=== PATIENT | male | born 1995 | race Caucasian/White ===

== ENCOUNTER 2017-09-16 22:21 | Emergency (ER) | payer BC ==
--- NOTE | 2017-09-16 22:27 | PDOC ---
History of Present Illness - General Chief Complaint: Nausea Stated Complaint: NOT FEELING WELL Time Seen by Provider: 09/16/17 22:27 History Source: Patient Exam Limitations: No Limitations - History of Present Illness Initial Comments: 09/16/17 22:30 This is a 22-year-old male who comes in complaining of not feeling well. Patient describes his symptoms are not feeling well as palpitations, some feeling of dizziness and some nausea. Patient said that he has been under a lot of stress the last few days. Patient denies history of similar symptoms in the past. Patient says he is otherwise healthy denies any vomiting, diarrhea, fever , chills. Patient denies any pain. PAST MEDICAL HISTORY: no significant history PAST SURGICAL HISTORY: no significant history FAMILY HISTORY: no pertinant history SOCIAL HISTORY: Pt lives with family and is employed. MEDICATIONS: reviewed ALLERGIES: As per nursing notes Review of Systems General: No fevers or chills, no weakness, no weight loss HEENT: No change in vision. No sore throat,. No ear pain CardioVascular: Palpitations, no chest pain, no shortness of breath Respiratory:No cough, or wheezing. Gastrointestinal: no nausea, vomitting, diarrhea or constipation, No rectal bleeding Genitourinary: No dysuria, hematuria, or frequency Musculoskeletal: No joint or muscle pain or swelling Neurologic: No headache, vertigo, dizziness, no syncope Psychiatric: nor depression Skin: No rashes or easy bruising Endocrine: no increased thirst or abnormal weight change Allergic: no skin or latex allergy All other systems reviewed and normal Exam: General: Well-nourished well-developed individual, no acute distress HEENT: Throat: Normal, tonsils normal, no erythema or exudate Neck: Supple, no meningeal signs, no lymphadenopathy Eyes::Pupils equal reactive and round, extraocular motion intact Chest: Nontender to palpation Cardiac: S1-S2 normal, regular rate and rhythm, no murmurs rubs or gallops Respiratory: Lungs clear to auscultation bilateral Abdomen: Soft, nondistended, normal bowel sounds, nontender to palpation diffusely Extremities: Warm, dry, no cyanosis, clubbing, or edema Skin: No rashes Neuro: Alert and oriented x3, nonfocal exam, grossly intact, normal gait Psych: Normal mood and affect Past History - Past Medical History Allergies/Adverse Reactions: Allergies Allergy/AdvReac Type Severity Reaction Status Date / Time No Known Drug Allergies Allergy Verified 09/22/16 09:58 SEAFOOD Allergy Uncoded 09/22/16 09:58 Home Medications: Ambulatory Orders NK [No Known Home Medication] 09/16/17 - Suicide/Smoking/Psychosocial Hx Smoking History: Current every day smoker Number of Cigarettes Smoked Daily: 10 'Breaking Loose' booklet given: 09/22/16 Hx Alcohol Use: Yes Drug/Substance Use Hx: No Substance Use Type: Alcohol *DC/Admit/Observation/Transfer Diagnosis at time of Disposition: Heart palpitations, Anxiety - Discharge Dispostion Disposition: HOME Condition at time of disposition: Stable Admit: No - Referrals - Patient Instructions Additional Instructions: Follow-up with a residential sales next week. Make sure you stay well hydrated. Return to the emergency department immediately with ANY new, persistent or worsening symptoms. Continue any medications as previously prescribed by your physician. You should follow up with your primary doctor as soon as possible regarding today's emergency department visit. . Please make sure your doctor reviews the results of your emergency evaluation. Thank you for coming to the Emergency Department today for your care. It was a pleasure to see you today. Please note that your evaluation is INCOMPLETE until you follow-up with your doctor. - Post Discharge Activity
[2017-09-16 22:28] VITALS: BP 126/87; PULSE 75; TEMP 98.7; BMI 29.0
[2017-09-16] MEDS ORDERED: ALPRAZolam 0.25 MG TABLET PO STA (22:45)
[2017-09-16] MEDS ORDERED: ALPRAZolam 0.25 MG TABLET ONE (22:48)
--- NOTE | 2017-09-20 08:10 | EKG ---
Test Reason : Blood Pressure : / mmHG Vent. Rate : 054 BPM Atrial Rate : 054 BPM P-R Int : 166 ms QRS Dur : 092 ms QT Int : 392 ms P-R-T Axes : 044 065 057 degrees QTc Int : 371 ms SINUS BRADYCARDIA WITH MARKED SINUS ARRHYTHMIA OTHERWISE NORMAL ECG NO PREVIOUS ECGS AVAILABLE Confirmed by ROXANA CLIFTON MD ([id number]) on 09/20/2017 8:10:12 AM Referred By: DR VANCE Confirmed By:ROXANA CLIFTON MD
== END 2017-09-16 23:42 | disposition home or self-care (01) ==
LOC: FER 22:21
DX: R00.2 Palpitations (principal); R41.9 Unspecified symptoms and signs involving cognitive functions and awareness; F17.210 Nicotine dependence, cigarettes, uncomplicated
CPT/HCPCS: 93005; 93010; 99282-25

== ENCOUNTER 2018-01-06 12:52 | Emergency (ER) | payer BC ==
[2018-01-06 13:05] VITALS: BP 117/64; PULSE 82; TEMP 99; BMI 30.5
[2018-01-06] MEDS ORDERED: KETOROLAC TROMETHAMINE 30 MG/1 ML VIAL IM ONE (13:23)
--- NOTE | 2018-01-06 13:23 | PDOC ---
History of Present Illness - General Chief Complaint: Sore Throat Stated Complaint: SORE THROAT 3 DAYS Time Seen by Provider: 01/06/18 13:18 - History of Present Illness Initial Comments: 01/06/18 14:15 Chief complaint: Sore throat History of present illness: 22 years old no significant past medical history presents to the emergency department with 2 day history of moderate to severe sore throat. Pain with swallowing but is been able to tolerate fluids and food. Subjective fevers no runny nose no significant cough no travel no sick contacts no neck pain Past History - Past Medical History Allergies/Adverse Reactions: Allergies Allergy/AdvReac Type Severity Reaction Status Date / Time No Known Drug Allergies Allergy Verified 09/22/16 09:58 SEAFOOD Allergy Intermediate Swelling Uncoded 01/06/18 12:53 Home Medications: Ambulatory Orders Penicillin V Potassium [Pen Vee K -] 500 mg PO BID #20 tablet 01/06/18 COPD: No Psychiatric Problems: Yes (ANXIETY) - Suicide/Smoking/Psychosocial Hx Smoking History: Former smoker Have you smoked in the past 12 months: Yes Number of Cigarettes Smoked Daily: 10 If you are a former smoker, when did you quit?: 3 MONTHS Information on smoking cessation initiated: No 'Breaking Loose' booklet given: 09/22/16 Hx Alcohol Use: Yes (SOCIAL) Drug/Substance Use Hx: No Substance Use Type: Alcohol Review of Systems - Review of Systems Comments:: 01/06/18 14:15 ROS: A complete review of 10 out of 10 review of systems is taken and is negative apart from what is previously mentioned below and in the HPI. *Physical Exam - Vital Signs Last Vital Signs Temp Pulse Resp BP Pulse Ox 99 F 82 16 117/64 99 01/06/18 12:53 01/06/18 12:53 01/06/18 12:53 01/06/18 12:53 01/06/18 12:53 - Physical Exam Comments: 01/06/18 14:15 Vitals: Triage Vital signs reviewed General Appearance: no acute distress, well nourished well developed, Head: Atraumatic, Eyes: Pupils equal reactive round, extraocular movement intact Nose: Nares patent bilaterally;no nasal congestion Throat: Posterior oropharynx with erythema, mucous membranes moist,+exudates Neck: Supple;No Nucal rigidity Chest Wall: Nontender Cardiac: Regular rate and rhythym, no murmurs, no rubs, no gallops, Lungs: Clear to auscultation bilateral, good air movement bilaterally, Abdomen: Soft, non distended, normal bowel sounds, non tender to palpation Extremities: Full range of motion to all extremities, no cyanosis, clubbing, or edema Skin: Warm and dry, no rashes or lesions, no rash, no petechiae Psych: normal mood, normal affect Medical Decision Making - Medical Decision Making 01/06/18 14:16 History and examination consistent with strep pharyngitis Toradol given IM for pain rapid strep sent 01/06/18 14:37 Rapid strep negative but clinically patient appears to have strep pharyngitis enlarged tonsils with exudates fever cervical adenopathy no runny nose no significant cough we'll treat with Pen-Vee K and have patient follow up with his primary care provider Findings, need for follow-up and strict return instructions discussed patient. *DC/Admit/Observation/Transfer Diagnosis at time of Disposition: Pharyngitis Qualifiers: Pharyngitis/tonsillitis etiology: unspecified etiology Qualified Code(s): J02.9 - Acute pharyngitis, unspecified - Discharge Dispostion Condition at time of disposition: Stable Admit: No - Prescriptions Prescriptions: Penicillin V Potassium [Pen Vee K -] 500 mg PO BID #20 tablet - Referrals - Patient Instructions Printed Discharge Instructions: DI for Pharyngitis/Tonsillopharyngitis -- Adult Additional Instructions: Antibiotics as prescribed. Alternate Tylenol and Motrin as directed on package every 3 hours as needed for fever or throat pain. Drink plenty of fluids. Return to ED immediately for any difficulty swallowing severe pain severe neck pain or for any concerns. - Post Discharge Activity Forms/Work/School Notes: Back to Work
[2018-01-06] MEDS ORDERED: KETOROLAC TROMETHAMINE 30 MG/1 ML VIAL ONE (13:45)
== END 2018-01-06 15:03 | disposition home or self-care (01) ==
LOC: FER 12:52
PROC: 3E0233Z Introduction of Anti-inflammatory into Muscle, Percutaneous Approach (ICD-10-PCS; principal; 2018-01-06)
DX: J02.9 Acute pharyngitis, unspecified (principal); F41.9 Anxiety disorder, unspecified; Z87.891 Personal history of nicotine dependence
CPT/HCPCS: 87070; 87430; 99281-25

== ENCOUNTER 2019-06-28 18:52 | Emergency (ER) | payer BC ==
[2019-06-28 19:00] VITALS: BP 126/82; PULSE 80; TEMP 98.7; BMI 28.5
--- NOTE | 2019-06-28 19:48 | PDOC ---
Documentation entered by Umberto Arzate SCRIBE, acting as scribe for German Mcgowan MD. German Mcgowan MD: This documentation has been prepared by the Huey braxton Elijah, SCRIBE, under my direction and personally reviewed by me in its entirety. I confirm that the documentation accurately reflects all work , treatment, procedures, and medical decision making performed by me. History of Present Illness - General Chief Complaint: Sore Throat Stated Complaint: SORE THROAT Time Seen by Provider: 06/28/19 19:28 History Source: Patient Exam Limitations: No Limitations - History of Present Illness Initial Comments: 06/28/19 19:37 HPI Patient is a 24 year old male with no reported past medical history who presents to the ED with a sore throat lasting for x5 days. Patient notes that this feels similar to Strep Throat that he has had in the past and came into the ED for evaluation. Denies fever. Allergies: NKDA, Seafood. ROS General: No fevers or chills, no weakness, no weight loss HEENT: +Sore throat. No change in vision. No ear pain CardioVascular: No chest pain or shortness of breath Respiratory:No cough, or wheezing. Gastrointestinal: no nausea, vomiting, diarrhea or constipation, No rectal bleeding Genitourinary: No dysuria, hematuria, or frequency Musculoskeletal: No joint or muscle pain or swelling Neurologic: No headache, vertigo, dizziness or loss of consciousness Psychiatric: nor depression Skin: No rashes or easy bruising Endocrine: no increased thirst or abnormal weight change Allergic: no skin or latex allergy All other systems reviewed and normal PE GENERAL: The patient is awake, alert, and fully oriented, in no acute distress. HEAD: Normal with no signs of trauma. EYES: Pupils equal, round and reactive to light, extraocular movements intact, sclera anicteric, conjunctiva clear. THROAT: +Mild Erythema in Tonsils. + Slightly swollen Left Lymph node in the submandibular area EXTREMITIES: Normal range of motion, no edema. NEUROLOGICAL: Normal speech, normal gait. PSYCH: Normal mood, normal affect. SKIN: Warm, Dry, normal turgor, no rashes or lesions noted. 06/28/19 19:47 Assessment and plan: This is a 24-year-old male who comes in complaining of sore throat 5 days. Patient has no fever or exudative pharyngitis. However rapid strep was sent since he does have a history of strep in the past. Past History - Past Medical History Allergies/Adverse Reactions: Allergies Allergy/AdvReac Type Severity Reaction Status Date / Time No Known Drug Allergies Allergy Verified 06/28/19 18:52 SEAFOOD Allergy Intermediate Swelling Uncoded 06/28/19 18:52 Home Medications: Ambulatory Orders NK [No Known Home Medication] 04/18/18 COPD: No Psychiatric Problems: Yes (ANXIETY) - Suicide/Smoking/Psychosocial Hx Smoking History: Current every day smoker Have you smoked in the past 12 months: Yes Number of Cigarettes Smoked Daily: 10 If you are a former smoker, when did you quit?: 3 MONTHS Information on smoking cessation initiated: Yes 'Breaking Loose' booklet given: 09/22/16 Hx Alcohol Use: Yes (SOCIAL) Drug/Substance Use Hx: No Substance Use Type: Alcohol *Physical Exam - Vital Signs Last Vital Signs Temp Pulse Resp BP Pulse Ox 98.7 F 80 18 126/82 99 06/28/19 18:52 06/28/19 18:52 06/28/19 18:52 06/28/19 18:52 06/28/19 18:52 *DC/Admit/Observation/Transfer Diagnosis at time of Disposition: Viral pharyngitis - Discharge Dispostion Disposition: HOME Condition at time of disposition: Stable Decision to Admit order: No - Referrals - Patient Instructions Additional Instructions: Tylenol or Motrin as needed for pain. Return to the emergency department immediately with ANY new, persistent or worsening symptoms. Continue any medications as previously prescribed by your physician. You should follow up with your primary doctor as soon as possible regarding today's emergency department visit. . Please make sure your doctor reviews the results of your emergency evaluation. Thank you for coming to the Emergency Department today for your care. It was a pleasure to see you today. Please note that your evaluation is INCOMPLETE until you follow-up with your doctor. - Post Discharge Activity
[2019-06-28] MEDS ORDERED: ACETAMINOPHEN 500 MG TABLET (FP) PO ONE (20:12)
[2019-06-28] MEDS ORDERED: ACETAMINOPHEN 500 MG TABLET (FP) ONE (20:15)
== END 2019-06-28 20:17 | disposition home or self-care (01) ==
LOC: FER 18:52
DX: J02.8 Acute pharyngitis due to other specified organisms (principal); B97.89 Other viral agents as the cause of diseases classified elsewhere; F17.210 Nicotine dependence, cigarettes, uncomplicated
CPT/HCPCS: 87070; 87077; 87880; 99282-25

== ENCOUNTER 2019-08-14 19:32 | Emergency (ER) | payer BC, OTHER ==
--- NOTE | 2019-08-14 19:43 | PDOC ---
History of Present Illness - General Chief Complaint: Injury Stated Complaint: LEFT KNEE INJURY Time Seen by Provider: 08/14/19 19:35 History Source: Patient - History of Present Illness Initial Comments: 08/15/19 04:58 banged knee against fire hydrant Occurred: reports: last week Severity: reports: mild Pain Location: reports: lower extremity Method of Injury: Yes: direct blow Modifying Factors: improves with: None Loss of Consciousness: no loss of consciousness Associated Symptoms (Fall): denies symptoms Past History - Past Medical History Allergies/Adverse Reactions: Allergies Allergy/AdvReac Type Severity Reaction Status Date / Time No Known Drug Allergies Allergy Verified 08/14/19 19:33 shellfish derived Allergy Verified 08/14/19 19:33 SEAFOOD Allergy Intermediate Swelling Uncoded 08/14/19 19:33 Home Medications: Ambulatory Orders NK [No Known Home Medication] 08/14/19 COPD: No Psychiatric Problems: Yes (ANXIETY) - Psycho Social/Smoking Cessation Hx Smoking History: Current every day smoker Have you smoked in the past 12 months: Yes Number of Cigarettes Smoked Daily: 10 If you are a former smoker, when did you quit?: 3 MONTHS 'Breaking Loose' booklet given: 09/22/16 Hx Alcohol Use: Yes (SOCIAL) Drug/Substance Use Hx: No Substance Use Type: Alcohol Review of Systems - Review of Systems All Other Systems: Reviewed and Negative *Physical Exam - Physical Exam General Appearance: Yes: Nourished, Appropriately Dressed HEENT: positive: Normal Voice Cardiovascular: positive: Regular Rate Gastrointestinal/Abdominal: negative: Distended, Tenderness Musculoskeletal: positive: Other (L knee--tender patella, small effusion, no joint instability, rom limited by pain (90 to 0) no other bony tenderness) Extremity: positive: Normal Capillary Refill Medical Decision Making - Medical Decision Making 08/15/19 05:01 Plain films: no fracture, as read by me, referred to radiology for definitive read knee contusion nsaids germain wrap applied by me Discharge - Discharge Information Problems reviewed: Yes Clinical Impression/Diagnosis: Knee sprain Qualifiers: Encounter type: initial encounter Involved ligament of knee: unspecified ligament Laterality: left Qualified Code(s): S83.92XA - Sprain of unspecified site of left knee, initial encounter Condition: Stable Disposition: HOME - Follow up/Referral - Patient Discharge Instructions Patient Printed Discharge Instructions: DI for Knee Sprain - Post Discharge Activity Work/Back to School Note: Back to Work
[2019-08-14 19:49] VITALS: BP 140/79; PULSE 65; TEMP 98.2; BMI 28.5
== END 2019-08-14 20:50 | disposition home or self-care (01) ==
LOC: FER 19:32
DX: S83.92XA Sprain of unspecified site of left knee, initial encounter (principal); W22.09XA Striking against other stationary object, initial encounter; Y93.89 Activity, other specified; Y92.410 Unspecified street and highway as the place of occurrence of the external cause; Y99.0 Civilian activity done for income or pay; F41.9 Anxiety disorder, unspecified; F17.210 Nicotine dependence, cigarettes, uncomplicated; Z91.013 Allergy to seafood
CPT/HCPCS: 73560-TC-LT-FY; 99282-25

== ENCOUNTER 2019-12-14 23:21 | Emergency (ER) | payer BC ==
[2019-12-14 23:29] VITALS: BP 143/88; PULSE 79; TEMP 98.2; BMI 28.5
--- NOTE | 2019-12-15 00:12 | PDOC ---
History of Present Illness - General Chief Complaint: Nausea Stated Complaint: MALAISE Time Seen by Provider: 12/14/19 23:24 History Source: Patient Exam Limitations: No Limitations - History of Present Illness Initial Comments: 12/15/19 00:13 24-year-old male no significant past medical history presenting with concern for possible STD exposure. Patient had unprotected intercourse several days ago with a new girl. The patient Has had intermittent pinching sensation at the tip of his penis That is random and not related to any activity or urination. The patient denies any other symptoms including fevers, chills, abdominal pain, nausea, vomiting, dysuria, penile discharge, Testicular pain,rashes. Patient has no current discomfort. ROS Constitutional - no reported Fever, Chills, Abd/GI: no reported abd pain, nausea, vomiting, blood per rectum, melena, diarrhea : no reported dysuria, frequency, discharge skin - no reported bruising, erythema, rash Exam: GENERAL: The patient is awake, alert, and fully oriented, Nontoxic - in no acute distress. ABDOMEN: Soft, nontender, No guarding, no rebound. No CVA tenderness :Circumised penis, no rashes present, no discharge, no testitcular tenderness Due to high risk behavior we will treat the patient prophylactically for GC. Will send GC will dc with outpatient fu Past History - Past Medical History Allergies/Adverse Reactions: Allergies Allergy/AdvReac Type Severity Reaction Status Date / Time No Known Drug Allergies Allergy Verified 08/14/19 19:33 shellfish derived Allergy Verified 08/14/19 19:33 SEAFOOD Allergy Intermediate Swelling Uncoded 08/14/19 19:33 Home Medications: Ambulatory Orders NK [No Known Home Medication] 08/14/19 COPD: No Psychiatric Problems: Yes (ANXIETY) - Psycho Social/Smoking Cessation Hx Smoking History: Never smoked Have you smoked in the past 12 months: Yes Number of Cigarettes Smoked Daily: 10 If you are a former smoker, when did you quit?: 3 MONTHS 'Breaking Loose' booklet given: 09/22/16 Hx Alcohol Use: Yes (SOCIAL) Drug/Substance Use Hx: No Substance Use Type: Alcohol *Physical Exam - Vital Signs Last Vital Signs Temp Pulse Resp BP Pulse Ox 98.2 F 79 16 143/88 100 12/14/19 23:23 12/14/19 23:23 12/14/19 23:23 12/14/19 23:23 12/14/19 23:23 ED Treatment Course - ADDITIONAL ORDERS Additional order review: Laboratory Results 12/14/19 23:33 Urine Color Yellow Urine Appearance Clear Urine pH 5.0 Urine Protein Negative Urine Glucose (UA) Negative Urine Ketones Trace Urine Blood Negative Urine Nitrite Negative Urine Bilirubin Negative Urine Urobilinogen 0.2 Ur Leukocyte Esterase Negative Discharge - Discharge Information Problems reviewed: Yes Clinical Impression/Diagnosis: Screen for STD (sexually transmitted disease) Condition: Stable Disposition: HOME - Admission No - Follow up/Referral Referrals: [facility] [Provider Group] - Patient Discharge Instructions Patient Printed Discharge Instructions: How to Detect and Treat STDs Additional Instructions: Return to the emergency department immediately with ANY new, persistent or worsening symptoms. A Culture was sent if the results are positive we will call you and you will need to notify your partners for treatment. You MUST call and follow up with your doctor tomorrow for further evaluation of your symptoms. Results were discussed with you. Please make sure your doctor reviews the results of your emergency evaluation. Your Emergency Department visit is not complete without a follow up with your doctor. Print Language: YAKUT - Post Discharge Activity
[2019-12-15] MEDS ORDERED: AZITHROMYCIN 500 MG TABLET PO ONE (00:13)
[2019-12-15] MEDS ORDERED: AZITHROMYCIN 250 MG TABLET ONE (00:16)
== END 2019-12-15 00:27 | disposition home or self-care (01) ==
LOC: FER 23:21
DX: Z11.3 Encounter for screening for infections with a predominantly sexual mode of transmission (principal); Z91.013 Allergy to seafood
CPT/HCPCS: 36415; 81003; 87491; 87591; 99284-25